=== PATIENT | male | born 1975 | race African-American/Black ===

== ENCOUNTER 2016-09-16 19:35 | Emergency (ER) | payer SELFPAY ==
[~2016-09-16] VITALS: Ht 175.3 cm; Wt 113.4 kg
[~2016-09-16 19:35] MED LIST: ASPI325T70 PO; B12/1TAB3 PO; BENZ200C39 PO; DILT240C PO; EXEN10PE SQ; GLIP10TA13 PO; HYDR-2666 PO; HYDR200T5 PO; LISI1TAB5 PO; LISI40TA PO; MELO-150 PO; METF-620 PO; METH4TAB2 PO; METO5TAB PO; NAPR500T8 PO; NAPR550T PO; NICO1PAT21 TP; RABE20TA5 PO; TEMA30CA PO
[2016-09-16 19:45] VITALS: BP 168/82
[2016-09-16] MEDS ORDERED: HYDROcodone/APAP 5/325MG 1 TAB TABLET PO ONE (20:00)
--- NOTE | 2016-09-16 20:03 | PHYS DOC ---
Past Medical History Past Medical History: Hypertension Additional Past Medical Histor: yolanda right thigh guillain barre syndrome Past Surgical History: Other Additional Past Surgical Histo: yolanda right thig sx Alcohol Use: None Drug Use: None Adult General Chief Complaint Chief Complaint: HAND PROBLEM HPI HPI Patient is a 40 year old male presents emergency department stating that he hit a wall with his right hand. He states that he is having pain in the metacarpal area in the wrist area. Patient states he has not taken anything for the pain and discomfort. Patient states that he is [id number]. Review of Systems Review of Systems Constitutional: Denies fever or chills [] Eyes: Denies change in visual acuity, redness, or eye pain [] HENT: Denies nasal congestion or sore throat [] Respiratory: Denies cough or shortness of breath [] Cardiovascular: No additional information not addressed in HPI [] GI: Denies abdominal pain, nausea, vomiting, bloody stools or diarrhea [] : Denies dysuria or hematuria [] Musculoskeletal: Denies back pain. C/o right hand and wrist pain Integument: Denies rash or skin lesions [] Neurologic: Denies headache, focal weakness or sensory changes [] Endocrine: Denies polyuria or polydipsia [] Current Medications Current Medications Current Medications Medications (Trade) Dose Ordered Sig/Natalie Start Time Stop Time Status Last Admin Dose Admin Acetaminophen/ Hydrocodone Bitart (Lortab 5/325) 1 tab 1X ONCE 09/16/16 20:00 09/16/16 20:01 DC 09/16/16 20:29 1 TAB Allergies Allergies Allergies Coded Allergies Type Severity Reaction Last Updated Verified No Known Drug Allergies 05/01/13 No Physical Exam Physical Exam Constitutional: Well developed, well nourished, no acute distress, non-toxic appearance. [] HENT: Normocephalic, atraumatic, bilateral external ears normal, oropharynx moist, no oral exudates, nose normal. [] Eyes: PERRLA, EOMI, conjunctiva normal, no discharge. [] Neck: Normal range of motion, no tenderness, supple, no stridor. [] Cardiovascular:Heart rate regular rhythm, no murmur [] Lungs & Thorax: Bilateral breath sounds clear to auscultation [] Skin: Warm, dry, no erythema, no rash. [] Back: No tenderness Extremities: Right metacarpal and wrist tenderness, no cyanosis, no clubbing, ROM intact, no edema. Peripheral pulses 2+ cap refill brisk less than 2 seconds. Patient with good incision to the fingers. He is able to move the fingers although discomfort noted. Neurologic: Alert and oriented X 3, normal motor function, normal sensory function, no focal deficits noted. [] Psychologic: Affect normal, judgement normal, mood normal. [] Current Patient Data Vital Signs Vital Signs Date Time Temp Pulse Resp B/P (MAP) Pulse Ox O2 Delivery O2 Flow Rate FiO2 09/16/16 20:29 20 98 09/16/16 19:45 98.1 62 Room Air 98.1 EKG EKG [] Radiology/Procedures Radiology/Procedures [] Course & Med Decision Making Course & Med Decision Making Pertinent Labs and Imaging studies reviewed. (See chart for details) X-rays were positive for fracture along the fifth metacarpal area on the right hand as well as a buckle fracture noted on the right radial. This was also confirmed with Dr. Monge. Patient will be placed in a sugar tong splint with recommendations to follow-up with orthopedic. Patient was instructed to keep the splint in place ice packs on 20 minutes off 20 minutes several times a day. Elevation as much as possible. Patient be placed in a sling he'll be discharged home in stable condition, signs and symptoms to return back to emergency department provided. Patient will be provided with hydrocodone he was instructed that this medication will cause drowsiness do not take any be alert and oriented [] Dragon Disclaimer Dragon Disclaimer This electronic medical record was generated, in whole or in part, using a voice recognition dictation system. Departure Departure Impression: Primary Impression: Hand fracture, right Additional Impression: Wrist fracture, right Disposition: HOME, SELF-CARE Condition: STABLE Referrals: NO PCP (PCP) Patient Instructions: Arm Sling Use-Brief, Hand Fracture, Fifth Metacarpal, Splint Care, [id number], Wrist Fracture Additional Instructions: X-rays positive for a right fifth metacarpal fracture as well as a wrist fracture. Keep the splint in place keep it clean and dry. Wear the sling whenever you're up ambulating to help with elevation. Ice packs on 20 minutes off 20 minutes several times a day. Ibuprofen 800 mg every 8 hours. Take this with food as it may cause an upset stomach. If an upset stomach develops stop taking the medications. Hydrocodone for severe pain and discomfort this medication will cause drowsiness do not take any be alert and oriented. Follow-up with orthopedic in the next 5-7 days. Return back to emergency prior signs symptoms of become worse. Scripts Hydrocodone/Apap 5-325 (NORCO 5-325 TABLET) 1 Each Tablet 1 TAB PO PRN Q6HRS Y for PAIN, #15 TAB 0 Refills Prov: OH TOURE APRN 09/16/16 Splinting Splinting : Location: right arm Splint: sugar-tong Pre-Proc Neuro Vasc Exam: normal Post-Proc Neuro Vasc Exam: normal Problem Qualifiers OH TOURE APRN September 16, 2016 20:03
[2016-09-16] MEDS ORDERED: HYDR-971 PO (20:28)
--- NOTE | 2016-09-17 07:24 | RAD ---
Exam performed: 3 views of the right wrist. Clinical Indication:Injury right hand and wrist with pain Date of Service:09/16/16 Comparison: None available Findings: PA, oblique and lateral radiographs of the wrist reveal the osseous structures to be intact and well aligned. The joint spaces are well-preserved and the articular margins are smooth. Evidence of acute fracture, dislocation or other significant osseous abnormality is not identified. Impression: 1. No acute abnormality seen in the right wrist End impression 3 views right hand findings: Normal alignment is preserved. There is an angulation in the mid diaphysis of the fourth metacarpal, probable nonacute fracture . No acute fracture is identified. There is mild soft tissue swelling overlying the lateral aspect of the hand. No soft tissue foreign body. Impression: 1. Probable nonacute fracture fourth metacarpal. 2. Soft tissue swelling in the lateral aspect of the right hand. 3. If patient's symptoms persist, consider follow-up x-ray of the right hand to evaluate occult fracture.
== END 2016-09-16 20:50 | disposition home or self-care (01) ==
LOC: ER 19:35
DX: S62.304A Unspecified fracture of fourth metacarpal bone, right hand, initial encounter for closed fracture (principal); S62.101A Fracture of unspecified carpal bone, right wrist, initial encounter for closed fracture; I10 Essential (primary) hypertension; W22.8XXA Striking against or struck by other objects, initial encounter; Y93.89 Activity, other specified; Y92.89 Other specified places as the place of occurrence of the external cause; Y99.8 Other external cause status
CPT/HCPCS: 29125; 73110; 73130; 99284-25

== ENCOUNTER 2016-11-08 04:11 | Inpatient (IN) | payer SELFPAY ==
[~2016-11-08] VITALS: Ht 167.6 cm; Wt 112.7 kg
[2016-11-08] VITALS (7 sets, daily range): BP systolic 142–218; BP diastolic 72–119
[~2016-11-08 04:11] MED LIST changes: -BENZ200C39 PO; +BENZ200C47 PO; -EXEN10PE SQ; +EXEN10PE3 SQ; -HYDR-2666 PO; +HYDR-2758 PO; +HYDR-971 PO; -MELO-150 PO; +MELO15TA23 PO; +RABE20TA18 PO; -RABE20TA5 PO
--- NOTE | 2016-11-08 04:14 | PHYS DOC ---
Past Medical History Past Medical History: Hypertension Additional Past Medical Histor: yolanda right thigh guillain barre syndrome Past Surgical History: Other Additional Past Surgical Histo: yolanda right thig sx Alcohol Use: None Drug Use: None Adult General Chief Complaint Chief Complaint: Neck Pain HPI HPI Patient is a 41 year old -[place]i male who presents with right-sided neck pain, shortness of breath and hypertension. He states this morning he started noticing the right side of his neck hurting and he had some intermittent shortness of breath or is a islam. He states tonight his shortness of breath returned. He states his neck pains been constant all day long. He took a hydrocodone at home without any relief. States nothing makes the pain better in his neck. He states turning his neck makes the pain worse. He denies any chest pain abdominal pain nausea or vomiting. States he is to be on the center [facility]. He ran out of a couple weeks ago. He states he stopped smoking marijuana 2 weeks ago and he is down to 2 cigarettes a day. Patient states she's also been filling down and depressed over the last several days. He denies suicidal or homicidal ideations. He is requesting someone talk to regarding his depression. Review of Systems Review of Systems Constitutional: Denies fever or chills [] Eyes: Denies change in visual acuity, redness, or eye pain [] HENT: Denies nasal congestion or sore throat [] Respiratory: Denies cough or shortness of breath [] Cardiovascular: No additional information not addressed in HPI [] GI: Denies abdominal pain, nausea, vomiting, bloody stools or diarrhea [] : Denies dysuria or hematuria [] Musculoskeletal: Denies back pain or joint pain [] Integument: Denies rash or skin lesions [] Neurologic: Denies headache, focal weakness or sensory changes [] Endocrine: Denies polyuria or polydipsia [] Current Medications Current Medications Current Medications Medications (Trade) Dose Ordered Sig/Natalie Start Time Stop Time Status Last Admin Dose Admin Diazepam (Valium) 5 mg 1X ONCE 11/08/16 04:45 11/08/16 04:46 DC 11/08/16 05:14 5 MG Fentanyl Citrate (Fentanyl 2ml Vial) 50 mcg PRN Q15MIN PRN 11/08/16 04:45 11/08/16 08:17 DC 11/08/16 05:14 50 MCG Allergies Allergies Allergies Coded Allergies Type Severity Reaction Last Updated Verified No Known Drug Allergies 05/01/13 No Physical Exam Physical Exam Constitutional: Well developed, well nourished, no acute distress, non-toxic appearance. [] HENT: Normocephalic, atraumatic, bilateral external ears normal, oropharynx moist, no oral exudates, nose normal. [] Eyes: PERRLA, EOMI, conjunctiva normal, no discharge. [] Neck: Normal range of motion, tender to palpation diffusely on the right lateral neck, no midline tenderness or step-offs noted, supple, no stridor. [] Cardiovascular:Heart rate regular rhythm, no murmur [] Lungs & Thorax: Bilateral breath sounds clear to auscultation [] Abdomen: Bowel sounds normal, soft, no tenderness, no masses, no pulsatile masses. [] Skin: Warm, dry, no erythema, no rash. [] Back: No tenderness, no CVA tenderness. [] Extremities: No tenderness, no cyanosis, no clubbing, ROM intact, no edema. [] Neurologic: Alert and oriented X 3, normal motor function, normal sensory function, no focal deficits noted. [] Psychologic: Affect normal, judgement normal, mood normal. [] Current Patient Data Vital Signs Vital Signs Date Time Temp Pulse Resp B/P (MAP) Pulse Ox O2 Delivery O2 Flow Rate FiO2 11/08/16 04:54 20 18 221/110 (147) 96 Room Air 11/08/16 04:34 98.0 98.0 Lab Values Laboratory Tests Test 11/08/16 04:45 White Blood Count 10.4 x10^3/uL (4.0-11.0) Red Blood Count 4.87 x10^6/uL (4.30-5.70) Hemoglobin 15.3 g/dL (13.0-17.5) Hematocrit 44.7 % (39.0-53.0) Mean Corpuscular Volume 92 fL (79-100) Mean Corpuscular Hemoglobin 32 pg (25-35) Mean Corpuscular Hemoglobin Concent 34 g/dL (31-37) Red Cell Distribution Width 13.5 % (11.5-14.5) Platelet Count 176 x10^3/uL (140-400) Neutrophils (%) (Auto) 58 % (31-73) Lymphocytes (%) (Auto) 29 % (24-48) Monocytes (%) (Auto) 10 % (0-9) H Eosinophils (%) (Auto) 3 % (0-3) Basophils (%) (Auto) 1 % (0-3) Neutrophils # (Auto) 6.0 x10^3uL (1.8-7.7) Lymphocytes # (Auto) 3.0 x10^3/uL (1.0-4.8) Monocytes # (Auto) 1.0 x10^3/uL (0.0-1.1) Eosinophils # (Auto) 0.3 x10^3/uL (0.0-0.7) Basophils # (Auto) 0.1 x10^3/uL (0.0-0.2) Prothrombin Time 13.2 SEC (11.7-14.0) Prothrombin Time INR 1.1 (0.8-1.1) Sodium Level 142 mmol/L (136-145) Potassium Level 3.3 mmol/L (3.5-5.1) L Chloride Level 106 mmol/L (98-107) Carbon Dioxide Level 29 mmol/L (21-32) Anion Gap 7 (6-14) Blood Urea Nitrogen 14 mg/dL (8-26) Creatinine 1.4 mg/dL (0.7-1.3) H Estimated GFR (Cockcroft-Gault) 67.6 Glucose Level 138 mg/dL (70-99) H Lactic Acid Level 1.9 mmol/L (0.4-2.0) Calcium Level 8.3 mg/dL (8.5-10.1) L Magnesium Level 1.9 mg/dL (1.8-2.4) Total Bilirubin 0.3 mg/dL (0.2-1.0) Direct Bilirubin 0.1 mg/dL (0.0-0.2) Aspartate Amino Transferase (AST) 23 U/L (15-37) Alanine Aminotransferase (ALT) 37 U/L (16-63) Alkaline Phosphatase 92 U/L (46-116) Creatine Kinase 113 U/L (39-308) Creatine Kinase MB (Mass) 2.8 ng/mL (0.0-3.6) Creatine Kinase MB Relative Index 2.5 % (0-4) Troponin I Quantitative 0.245 ng/mL (0.000-0.055) HJ-[id number]-D-Type Natriuretic Peptide 399 pg/mL (0-124) H Total Protein 6.8 g/dL (6.4-8.2) Albumin 3.6 g/dL (3.4-5.0) Lipase 86 U/L (73-393) Thyroid Stimulating Hormone (TSH) 1.543 uIU/mL (0.358-3.74) Free Thyroxine 0.98 ng/dL (0.76-1.46) Free Triiodothyronine (T3) pg/mL 3.08 pg/mL (2.18-3.98) Laboratory Tests 11/08/16 04:45 Laboratory Tests 11/08/16 04:45 EKG EKG EKG shows sinus rhythm with a rate of [address] elevations, early re -pole noted through V1 through V4, T-wave inversions noted to 3 aVF, normal axis , QTC 4 and 50 ms, as interpreted by me.Similar to on EKG on 03/02/16. Radiology/Procedures Radiology/Procedures Chest x-ray did not show any focal consolidations, bony abnormalities, pneumothorax, as interpreted by me. Impressions: Accelerated hypertension Elevated troponin Right-sided neck pain Depression Course & Med Decision Making Course & Med Decision Making Pertinent Labs and Imaging studies reviewed. (See chart for details) EKG shows likely LVH consistent similar to his previous one. He does not have any chest pain or shortness of breath currently. His troponin is slightly elevated. He's been given labetalol and aspirin is being admitted to the hospitalist with cardiology consultation. He is in stable condition at this time. Interim orders have been written. Dragon Disclaimer Dragon Disclaimer This electronic medical record was generated, in whole or in part, using a voice recognition dictation system. Departure Departure Impression: Primary Impression: Accelerated hypertension Disposition: ADMITTED INPATIENT Admitting Physician: Kala Davis Condition: STABLE Referrals: NO PCP (PCP) ALLIE OLIVERA MD Nov 08, 2016 04:14
[2016-11-08] MEDS ORDERED: fentaNYL PF VIAL 100 MCG/2 ML VIAL IV PRN ×2 (04:45→08:12)
[2016-11-08 04:57] LABS: BASO # 0.1 x10^3/uL (0.0-0.2); BASO % 1 % (0-3); EOS % 3 % (0-3); HEMATOCRIT 44.7 % (39.0-53.0); HEMOGLOBIN 15.3 g/dL (13.0-17.5); LYMPH % 29 % (24-48); MEAN CORPUSCULAR HEMOGLOBIN 32 pg (25-35); MEAN CORPUSCULAR HGB CONC 34 g/dL (31-37); MEAN CORPUSCULAR VOLUME 92 fL (79-100); MONO % 10 % (0-9); NEUT % 58 % (31-73); PLATELET COUNT 176 x10^3/uL (140-400); RED BLOOD COUNT 4.87 x10^6/uL (4.30-5.70); RED CELL DISTRIBUTION WIDTH 13.5 % (11.5-14.5); WHITE BLOOD COUNT 10.4 x10^3/uL (4.0-11.0)
[2016-11-08 05:08] LABS: INR 1.1 (0.8-1.1); PROTHROMBIN TIME PATIENT 13.2 SEC (11.7-14.0)
[2016-11-08 05:18] LABS: CALCIUM 8.3 mg/dL (8.5-10.1); CREATININE 1.4 mg/dL (0.7-1.3); GFR 67.6; POTASSIUM 3.3 mmol/L (3.5-5.1)
[2016-11-08 05:32] LABS: ALBUMIN 3.6 g/dL (3.4-5.0); DIRECT BILIRUBIN 0.1 mg/dL (0.0-0.2); MAGNESIUM 1.9 mg/dL (1.8-2.4); TOTAL BILIRUBIN 0.3 mg/dL (0.2-1.0); TOTAL PROTEIN 6.8 g/dL (6.4-8.2)
[2016-11-08 05:33] LABS: CKMB MASS 2.8 ng/mL (0.0-3.6)
[2016-11-08] MEDS ORDERED: LABETALOL 20 MG/4 ML DISP.SYRIN. IVP PRN ×2 (05:45→08:15)
[2016-11-08] MEDS ORDERED: ASPIRIN 325 MG TABLET PO ONE (05:45)
[2016-11-08] MEDS ORDERED: LABETALOL 20 MG/4 ML DISP.SYRIN. IVP ONE (05:45)
[2016-11-08] MEDS ORDERED: MORPHINE SULFATE 2 MG/ML DISP.SYRIN. IV PRN (05:45)
[2016-11-08] MEDS ORDERED: ONDANSETRON PF 4 MG/2 ML VIAL. IV PRN ×2 (05:45→08:12)
--- NOTE | 2016-11-08 07:12 | EKG ---
[facility] [address] [place] [address] Test Date: 2016-11-08 Test Time: 04:31:48 Pat Name: REDDY RAYMUDNO Department: Room: Gender: M Loan Coordinator: : 1975 Requested By: ALLIE OLIVERA Order Number: [id number] Reading MD: Measurements Intervals [place] Rate: 87 P: 34 ID: [id number] QRS: 56 QRSD: 86 T: -62 QT: 380 QTc: 458 Interpretive Statements SINUS RHYTHM LEFT ATRIAL ABNORMALITY LVH WITH REPOLARIZATION ABNORMALITY QRS(T) CONTOUR ABNORMALITY CONSIDER ANTEROLATERAL MYOCARDIAL DAMAGE ABNORMAL ECG RI6.01 No previous ECG available for comparison
--- NOTE | 2016-11-08 07:33 | RAD ---
Indication chest pain. A single view of the chest was obtained. Note is made of a previous examination 03/02/2016. Mild cardiomegaly is noted, similar. There is no congestive heart failure. No focal infiltrate is seen. There is no pleural fluid or pneumothorax. Overall there has not been a significant change compared to the previous exam. IMPRESSION: Unchanged mild cardiomegaly. No acute or focal process seen
[2016-11-08] MEDS ORDERED: HYDROcodone/APAP 5/325MG 1 TAB TABLET PO PRN ×2 (08:15)
[2016-11-08] MEDS ORDERED: EXENATIDE 10 MCG/0.04 ML 2.4ML PEN.INJCTR. SQ SCH (09:00)
[2016-11-08] MEDS ORDERED: BENZONATATE 100 MG CAPSULE. PO SCH (09:00)
[2016-11-08] MEDS ORDERED: glipiZIDE ER 2.5 MG TAB.ER.24 PO SCH (09:00)
--- NOTE | 2016-11-08 09:55 | PDOC1 ---
History and Physical Date of Admission Date of Admission DATE: 11/08/16 TIME: 09:47 Identification/Chief Complaint Chief Complaint neck pains Problems: Source Source: Caregiver, Chart review, Patient History of Present Illness History of Present Illness 41 y.o AA male, heavy set,. follows with a clinic where his co pay is $25 to see him, known hypertensive, supposed to be on lisinopril but not taking ( takes his mom's lisinopril), came in last night bec of severe neck pains and headaches, SBP was > 200 at ER. No BOV, no cp, soa,. Feels better, SBO now 170/110, HR 80s, seen on CVC with cards on board, NO FNDs, neuro exam WNL. Looking at MAR , i see lisinopril HCTZ, cardizem etc' I did discuss with him about these pills being on $4 [facility] list for 90 pills and he was unaware of this, Used to smoke 2 cigs a day and 2 drinks etoh in a yr only Hx R yolanda leg placement and GBS at age 19, not affecting breathing but did affect eating - point his deficit was from the nipples down. NO recurrence since. CLaims Still feet pain, intermittent, Past Medical History Cardiovascular: HTN Pulmonary: Bronchitis GI: Other (tick bite) Musculoskeletal: Other (GBS) Past Surgical History Past Surgical History: Other (yolanda ortho sx R leg) Family History Family History: Heart Disease, High Cholestrol, Hypertension Social History Smoke: <1 pack per day ALCOHOL: occassional Drugs: None Current Problem List Problem List Problems Medical Problems: (1) Accelerated hypertension Status: Acute Problems: Current Medications Current Medications Current Medications Fentanyl Citrate (Fentanyl 2ml Vial) 50 mcg PRN Q15MIN PRN IV PAIN GREATER THAN 3/10 Last administered on 11/08/16 05:14; Start 11/08/16 at 04:45; Stop 11/08 at 08:17; Status DC Diazepam (Valium) 5 mg 1X ONCE IV Last administered on 11/08/16 05:14; Start 11/08/16 at 04:45; Stop 11/08/16 at 04:46; Status DC Labetalol HCl (Normodyne) 20 mg 1X ONCE IVP Last administered on 11/08/16 05: 40; Start 11/08/16 at 05:45; Stop 11/08/16 at 05:46; Status DC Aspirin (Lindsey Aspirin) 325 mg 1X ONCE PO Last administered on 11/08/16 05:39 ; Start 11/08/16 at 05:45; Stop 11/08/16 at 05:46; Status DC Ondansetron HCl (Zofran) 4 mg PRN Q8HRS PRN IV NAUSEA/VOMITING; Start 11/08/16 at 05:45; Stop 11/08/16 at 08:17; Status DC Morphine Sulfate 2 mg PRN Q2HR PRN IV PAIN Last administered on 11/08/16 08:14 ; Start 11/08/16 at 05:45; Stop 11/09/16 at 05:44 Labetalol HCl (Normodyne) 20 mg PRN 1X PRN IVP systolic greater than 180 Last administered on 11/08/16 07:16; Start 11/08/16 at 05:45 Fentanyl Citrate (Fentanyl 2ml Vial) 50 mcg PRN Q2HR PRN IV PAIN GREATER THAN 3 /10; Start 11/08/16 at 08:12; Stop 11/09/16 at 08:11 Ondansetron HCl (Zofran) 4 mg PRN Q6HRS PRN IV NAUSEA/VOMITING; Start 11/08/16 at 08:12; Stop 11/09/16 at 08:11 Labetalol HCl (Normodyne) 10 mg PRN Q2HR PRN IVP HYPERTENSION, SEE COMMENTS; Start 11/08/16 at 08:15 Acetaminophen/ Hydrocodone Bitart (Lortab 5/325) 1 tab PRN Q4HRS PRN PO PAIN; Start 11/08/16 at 08:15 Diltiazem HCl (Cardizem 24hr Cd) 240 mg DAILY PO ; Start 11/08/16 at 09:00 Exenatide (Byetta) 10 mcg DAILY SQ ; Start 11/08/16 at 09:00 Acetaminophen/ Hydrocodone Bitart (Lortab 5/325) 1 tab QID PRN PO pain; Start 11/08/16 at 08:15; Status UNV Acetaminophen/ Hydrocodone Bitart (Lortab 5/325) 1 tab PRN Q6HRS PRN PO PAIN; Start 11/08/16 at 08:15; Status UNV Lisinopril (Prinivil) 40 mg DAILY PO ; Start 11/08/16 at 09:00 Metoclopramide HCl (Reglan) 5 mg TIDAC PO ; Start 11/08/16 at 11:30 Nicotine (Nicoderm Cq 21mg) 1 patch DAILY TD ; Start 11/08/16 at 09:00 Temazepam (Restoril) 15 mg QHS PO ; Start 11/08/16 at 21:00 Benzonatate (Tessalon Perle) 100 mg [id number] PO ; Start 11/08/16 at 09:00 Glipizide (Glucotrol Er) 10 mg DAILY08 PO ; Start 11/09/16 at 08:00; Stop at 08:00; Status DC Glipizide (Glucotrol Er) 10 mg DAILY08 PO ; Start 11/08/16 at 09:00 Active Scripts Active [place] 5-325 Tablet (Acetaminophen/Hydrocodone Bitart) 1 Each Tablet 1 Tab PO PRN Q6HRS PRN Anaprox Ds (Naproxen Sodium) 550 Mg Tablet 1 Tab PO PRN Q12HRS Benzonatate 200 Mg Capsule 1 Cap PO TID Lisinopril 40 Mg Tablet 1 Tab PO DAILY Naproxen 500 Mg Tablet.dr 1 Tab PO BID Medrol (Methylprednisolone) 4 Mg Tab.ds.pk 1 Pkg PO UD NICODERM CQ 21mg (Nicotine) 1 Each Patch.td24 1 Patch TP DAILY Reported Byetta (Exenatide) 10 Mcg/0.04 Ml Pen.injctr 10 Mcg SQ Metformin Hcl 1,000 Mg Tablet 1,000 Mg PO Glipizide 10 Mg Tablet 10 Mg PO Hydroxychloroquine Sulfate 200 Mg Tablet 200 Mg PO Lisinopril-Hctz 20-12.5 Mg Tab (Lisinopril/Hydrochlorothiazide) 1 Each Tablet 1 Each PO Metoclopramide Hcl 5 Mg Tablet 5 Mg PO Diltiazem 24HR Er (Diltiazem Hcl) 240 Mg Cap.er.24h 240 Mg PO Aciphex (Rabeprazole Sodium) 20 Mg Tablet.dr 20 Mg PO Hydrocodone-Apap 5-325 (Hydrocodone Bit/Acetaminophen) 1 Each Tablet 1 Each PO Meloxicam 15 Mg Tablet 15 Mg PO Temazepam 30 Mg Capsule 30 Mg PO Folbic Rf Tablet (B12/Levomefolate Calcium/B-6) 1 Each Tablet 1 Each PO Aspirin Buffered 325 Mg Tab (Aspirin/Calcium Carbonate/Mag) 325 Mg Tablet 325 Mg PO Allergies Allergies: Coded Allergies: No Known Drug Allergies (Unverified , 05/01/13) ROS General: No: Chills, Night Sweats, Fatigue, Malaise, Appetite, Other PSYCHOLOGICAL ROS: No: Anxiety, Behavioral Disorder, Concentration difficultie , Decreased libido, Depression, Disorientation, Hallucinations, Hostility, Irritablity, Memory difficulties, Mood Swings, Obsessive thoughts, Physical abuse, Sexual abuse, Sleep disturbances, Suicidal ideation, Other Eyes: No Blurry vision, No Decreased vision, No Double vision, No Dry eyes, No Excessive tearing, No Eye Pain, No Itchy Eyes, No Loss of vision, No Photophobia , No Scotomata, No Uses contacts, No Uses glasses, No Other Hematological and Lymphatic: No: Bleeding Problems, Blood Clots, Blood Transfusions, Brusing, Night Sweats, Pallor, Swollen Lymph Nodes, Other Breast: No New/Changing Breast Lumps, No Nipple changes, No Nipple discharge, No Other Respiratory: No: Cough, Hemoptysis, Orthopnea, Pleuritic Pain, Shortness of breath, SOB with excertion, Sputum Changes, Stridor, Tachypnea, Wheezing, Other Cardiovascular: No Chest Pain, No Palpitations, No Orthopnea, No Paroxysmal Noc. Dyspnea, No Edema, No Lt Headedness, No Other Gastrointestinal: No Nausea, No Vomiting, No Abdominal Pain, No Diarrhea, No Constipation, No Melena, No Hematochezia, No Other Musculoskeletal: No Gait Disturbance, No Joint Pain, No Joint Stiffness, No Joint Swelling, No Muscle Pain, No Muscular Weakness, No Pain In:, No Swelling In:, No Other Neurological: Yes Headaches, Yes Other (neck pain) Physical Exam General: Alert, Oriented X3, Cooperative, No acute distress HEENT: Atraumatic, PERRLA, EOMI Lungs: Clear to auscultation, Normal air movement Heart: S1S2, RRR, no thrills, no rubs Cardiovascular: S1, S2 Breasts: Normal, Rt breast nml w/o mass, Lt breast nml w/o mass, Nipples normal Abdomen: Normal bowel sounds, Soft, No tenderness, No hepatosplenomegaly, No masses Male Genitals Exam: normal genitalia, normal prostate Rectal Exam: not examined PELVIC: Nml ext genitalia Extremities: No clubbing, No cyanosis, No edema, Normal pulses, No tenderness/ swelling Skin: No rashes, No breakdown, No significant lesion Neuro: Normal gait, Normal speech, Strength at 5/5 X4 ext, Normal tone, Sensation intact, Cranial nerves 3-12 NL, Reflexes 2+ Psych/Mental Status: Mental status NL, Mood NL Vitals Vitals Vital Signs Date Time Temp Pulse Resp B/P (MAP) Pulse Ox O2 Delivery O2 Flow Rate FiO2 11/08/16 08:14 20 Room Air 11/08/16 07:16 92 182/104 11/08/16 07:00 98.0 95 98.0 Labs Labs Laboratory Tests Test 11/08/16 04:45 White Blood Count 10.4 x10^3/uL (4.0-11.0) Red Blood Count 4.87 x10^6/uL (4.30-5.70) Hemoglobin 15.3 g/dL (13.0-17.5) Hematocrit 44.7 % (39.0-53.0) Mean Corpuscular Volume 92 fL (79-100) Mean Corpuscular Hemoglobin 32 pg (25-35) Mean Corpuscular Hemoglobin Concent 34 g/dL (31-37) Red Cell Distribution Width 13.5 % (11.5-14.5) Platelet Count 176 x10^3/uL (140-400) Neutrophils (%) (Auto) 58 % (31-73) Lymphocytes (%) (Auto) 29 % (24-48) Monocytes (%) (Auto) 10 % (0-9) Eosinophils (%) (Auto) 3 % (0-3) Basophils (%) (Auto) 1 % (0-3) Neutrophils # (Auto) 6.0 x10^3uL (1.8-7.7) Lymphocytes # (Auto) 3.0 x10^3/uL (1.0-4.8) Monocytes # (Auto) 1.0 x10^3/uL (0.0-1.1) Eosinophils # (Auto) 0.3 x10^3/uL (0.0-0.7) Basophils # (Auto) 0.1 x10^3/uL (0.0-0.2) Prothrombin Time 13.2 SEC (11.7-14.0) Prothromb Time International Ratio 1.1 (0.8-1.1) Sodium Level 142 mmol/L (136-145) Potassium Level 3.3 mmol/L (3.5-5.1) Chloride Level 106 mmol/L (98-107) Carbon Dioxide Level 29 mmol/L (21-32) Anion Gap 7 (6-14) Blood Urea Nitrogen 14 mg/dL (8-26) Creatinine 1.4 mg/dL (0.7-1.3) Estimated GFR (Cockcroft-Gault) 67.6 Glucose Level 138 mg/dL (70-99) Lactic Acid Level 1.9 mmol/L (0.4-2.0) Calcium Level 8.3 mg/dL (8.5-10.1) Magnesium Level 1.9 mg/dL (1.8-2.4) Total Bilirubin 0.3 mg/dL (0.2-1.0) Direct Bilirubin 0.1 mg/dL (0.0-0.2) Aspartate Amino Transf (AST/SGOT) 23 U/L (15-37) Alanine Aminotransferase (ALT/SGPT) 37 U/L (16-63) Alkaline Phosphatase 92 U/L (46-116) Creatine Kinase 113 U/L (39-308) Creatine Kinase MB (Mass) 2.8 ng/mL (0.0-3.6) Creatine Kinase MB Relative Index 2.5 % (0-4) Troponin I Quantitative 0.245 ng/mL (0.000-0.055) NA-Yei-G-Type Natriuretic Peptide 399 pg/mL (0-124) Total Protein 6.8 g/dL (6.4-8.2) Albumin 3.6 g/dL (3.4-5.0) Lipase 86 U/L (73-393) Thyroid Stimulating Hormone (TSH) 1.543 uIU/mL (0.358-3.74) Laboratory Tests Test 11/08/16 04:45 White Blood Count 10.4 x10^3/uL (4.0-11.0) Red Blood Count 4.87 x10^6/uL (4.30-5.70) Hemoglobin 15.3 g/dL (13.0-17.5) Hematocrit 44.7 % (39.0-53.0) Mean Corpuscular Volume 92 fL (79-100) Mean Corpuscular Hemoglobin 32 pg (25-35) Mean Corpuscular Hemoglobin Concent 34 g/dL (31-37) Red Cell Distribution Width 13.5 % (11.5-14.5) Platelet Count 176 x10^3/uL (140-400) Neutrophils (%) (Auto) 58 % (31-73) Lymphocytes (%) (Auto) 29 % (24-48) Monocytes (%) (Auto) 10 % (0-9) Eosinophils (%) (Auto) 3 % (0-3) Basophils (%) (Auto) 1 % (0-3) Neutrophils # (Auto) 6.0 x10^3uL (1.8-7.7) Lymphocytes # (Auto) 3.0 x10^3/uL (1.0-4.8) Monocytes # (Auto) 1.0 x10^3/uL (0.0-1.1) Eosinophils # (Auto) 0.3 x10^3/uL (0.0-0.7) Basophils # (Auto) 0.1 x10^3/uL (0.0-0.2) Prothrombin Time 13.2 SEC (11.7-14.0) Prothromb Time International Ratio 1.1 (0.8-1.1) Sodium Level 142 mmol/L (136-145) Potassium Level 3.3 mmol/L (3.5-5.1) Chloride Level 106 mmol/L (98-107) Carbon Dioxide Level 29 mmol/L (21-32) Anion Gap 7 (6-14) Blood Urea Nitrogen 14 mg/dL (8-26) Creatinine 1.4 mg/dL (0.7-1.3) Estimated GFR (Cockcroft-Gault) 67.6 Glucose Level 138 mg/dL (70-99) Lactic Acid Level 1.9 mmol/L (0.4-2.0) Calcium Level 8.3 mg/dL (8.5-10.1) Magnesium Level 1.9 mg/dL (1.8-2.4) Total Bilirubin 0.3 mg/dL (0.2-1.0) Direct Bilirubin 0.1 mg/dL (0.0-0.2) Aspartate Amino Transf (AST/SGOT) 23 U/L (15-37) Alanine Aminotransferase (ALT/SGPT) 37 U/L (16-63) Alkaline Phosphatase 92 U/L (46-116) Creatine Kinase 113 U/L (39-308) Creatine Kinase MB (Mass) 2.8 ng/mL (0.0-3.6) Creatine Kinase MB Relative Index 2.5 % (0-4) Troponin I Quantitative 0.245 ng/mL (0.000-0.055) XQ-Mey-S-Type Natriuretic Peptide 399 pg/mL (0-124) Total Protein 6.8 g/dL (6.4-8.2) Albumin 3.6 g/dL (3.4-5.0) Lipase 86 U/L (73-393) Thyroid Stimulating Hormone (TSH) 1.543 uIU/mL (0.358-3.74) VTE Prophylaxis Ordered VTE Prophylaxis Devices: Yes VTE Pharmacological Prophylaxi: Yes Assessment/Plan Assessment/Plan 1. Hypertensive emergency POA 2. Obesity BMI 40.4 3. DM type 2? on glipizide on records (BS not bad 130s) 4. HX GBS 5. Social smoker and drinker pLAN: Add labetolol prn Admit CVC Cards consulted REsumed home meds (lisinopril, HCTZ combo pill, cardizem as home med) SSI MAy check [id number] Needs to ff up OP with clinic for better BP control; COunseled on tHe $4 pharmacy list Blayne RN and pt KENDY FLOYD MD Nov 08, 2016 09:55
[2016-11-08] MEDS: HYDROcodone/APAP 5/325MG 1 TAB TABLET PO PRN ×3 (10:00→20:45)
--- NOTE | 2016-11-08 10:37 | PDOC2 ---
CARDIAC CONSULT DATE OF CONSULT Date of Consult DATE: 11/08/16 TIME: 10:31 REASON FOR CONSULT Reason for Consult: Accelerated HTN REFERRING PHYSICIAN Referring Physician: Dr. Gupta SOURCE Source: Chart review, Patient HISTORY OF PRESENT ILLNESS HISTORY OF PRESENT ILLNESS This is a 41 yo male, with a h/o HTN, who presented with complaints of MATHEW and neck pain. SBP> 200 upon arrival. Labetalol IVP administered with mild improvement. Patient reports neck pain began yesterday morning while at [employer]. Describes pain as a constant and throbbing/aching. Pain improved by rubbing his neck. Took hydrocodone, which did not significantly improved pain. Also noticed slight MATHEW a that time. Symptoms persisted through the day, evening, and night. Unable to sleep due to the pain so he came into the ED for further evaluation and treatment. Patient denies any chest pain, dizziness, diaphoresis , or n/v. Has had some mild SOA. No orthopnea or LE edema Does have a history of hypertension. Was previously on Cardizem and lisinopril, but quit taking as the "raised the beckett and were too expensive." PAST MEDICAL HISTORY Cardiovascular: HTN Pulmonary: No pertinent hx CENTRAL NERVOUS SYSTEM: Other (no pertinent hx ) GI: No pertinent hx Heme/Onc: No pertinent hx Hepatobiliary: No pertinent hx Psych: Depression Musculoskeletal: Osteoarthritis, Other (GBS) Rheumatologic: No pertinent hx Infectious disease: No pertinent hx ENT: No pertinent hx Renal/: No pertinent hx Endocrine: No pertinent hx Dermatology: No pertinent hx PAST SURGICAL HISTORY Past Surgical History: Other (yolanda left femur following fx) FAMILY HISTORY Family History: Hypertension SOCIAL HISTORY Smoke: <1 pack per day ALCOHOL: rare Drugs: None Lives: with Family CURRENT MEDICATIONS CURRENT MEDICATIONS Current Medications Medications (Trade) Dose Ordered Sig/Natalie Route PRN Reason Start Time Stop Time Status Last Admin Dose Admin Fentanyl Citrate (Fentanyl 2ml Vial) 50 mcg PRN Q15MIN PRN IV PAIN GREATER THAN 3/10 11/08/16 04:45 11/08/16 08:17 DC 11/08/16 05:14 Diazepam (Valium) 5 mg 1X ONCE IV 11/08/16 04:45 11/08/16 04:46 DC 11/08/16 05:14 Labetalol HCl (Normodyne) 20 mg 1X ONCE IVP 11/08/16 05:45 11/08/16 05:46 DC 11/08/16 05:40 Aspirin (Lindsey Aspirin) 325 mg 1X ONCE PO 11/08/16 05:45 11/08/16 05:46 DC 11/08/16 05:39 Morphine Sulfate 2 mg PRN Q2HR PRN IV PAIN 11/08/16 05:45 11/09/16 05:44 11/08/16 08:14 Labetalol HCl (Normodyne) 20 mg PRN 1X PRN IVP systolic greater than 180 11/08/16 05:45 11/08/16 07:16 ALLERGIES ALLERGIES: Coded Allergies: No Known Drug Allergies (Unverified , 05/01/13) ROS Review of System 14 point ROS conducted with pertinent positives noted above in HPI. PHYSICAL EXAM General: Alert, Oriented X3, Cooperative, No acute distress HEENT: Atraumatic, Mucous membr. moist/pink, Other (neck pain) Lungs: Clear to auscultation, Normal air movement Heart: Regular rate, Normal S1, Normal S2, No murmurs Abdomen: Soft, No tenderness Extremities: No edema, Normal pulses Skin: No breakdown, No significant lesion Neuro: Normal speech, Sensation intact Psych/Mental Status: Mental status NL, Mood NL MUSCULOSKELETAL: No joint tenderness VITALS VITALS Vital Signs Date Time Temp Pulse Resp B/P (MAP) Pulse Ox O2 Delivery O2 Flow Rate FiO2 11/08/16 08:14 20 Room Air 11/08/16 07:16 92 182/104 11/08/16 07:00 98.0 95 98.0 LABS Lab: Laboratory Tests Test 11/08/16 04:45 White Blood Count 10.4 x10^3/uL (4.0-11.0) Red Blood Count 4.87 x10^6/uL (4.30-5.70) Hemoglobin 15.3 g/dL (13.0-17.5) Hematocrit 44.7 % (39.0-53.0) Mean Corpuscular Volume 92 fL (79-100) Mean Corpuscular Hemoglobin 32 pg (25-35) Mean Corpuscular Hemoglobin Concent 34 g/dL (31-37) Red Cell Distribution Width 13.5 % (11.5-14.5) Platelet Count 176 x10^3/uL (140-400) Neutrophils (%) (Auto) 58 % (31-73) Lymphocytes (%) (Auto) 29 % (24-48) Monocytes (%) (Auto) 10 % (0-9) Eosinophils (%) (Auto) 3 % (0-3) Basophils (%) (Auto) 1 % (0-3) Neutrophils # (Auto) 6.0 x10^3uL (1.8-7.7) Lymphocytes # (Auto) 3.0 x10^3/uL (1.0-4.8) Monocytes # (Auto) 1.0 x10^3/uL (0.0-1.1) Eosinophils # (Auto) 0.3 x10^3/uL (0.0-0.7) Basophils # (Auto) 0.1 x10^3/uL (0.0-0.2) Prothrombin Time 13.2 SEC (11.7-14.0) Prothromb Time International Ratio 1.1 (0.8-1.1) Sodium Level 142 mmol/L (136-145) Potassium Level 3.3 mmol/L (3.5-5.1) Chloride Level 106 mmol/L (98-107) Carbon Dioxide Level 29 mmol/L (21-32) Anion Gap 7 (6-14) Blood Urea Nitrogen 14 mg/dL (8-26) Creatinine 1.4 mg/dL (0.7-1.3) Estimated GFR (Cockcroft-Gault) 67.6 Glucose Level 138 mg/dL (70-99) Lactic Acid Level 1.9 mmol/L (0.4-2.0) Calcium Level 8.3 mg/dL (8.5-10.1) Magnesium Level 1.9 mg/dL (1.8-2.4) Total Bilirubin 0.3 mg/dL (0.2-1.0) Direct Bilirubin 0.1 mg/dL (0.0-0.2) Aspartate Amino Transf (AST/SGOT) 23 U/L (15-37) Alanine Aminotransferase (ALT/SGPT) 37 U/L (16-63) Alkaline Phosphatase 92 U/L (46-116) Creatine Kinase 113 U/L (39-308) Creatine Kinase MB (Mass) 2.8 ng/mL (0.0-3.6) Creatine Kinase MB Relative Index 2.5 % (0-4) Troponin I Quantitative 0.245 ng/mL (0.000-0.055) NL-Sks-E-Type Natriuretic Peptide 399 pg/mL (0-124) Total Protein 6.8 g/dL (6.4-8.2) Albumin 3.6 g/dL (3.4-5.0) Lipase 86 U/L (73-393) Thyroid Stimulating Hormone (TSH) 1.543 uIU/mL (0.358-3.74) ASSESSMENT/PLAN ASSESSMENT/PLAN 1. Hypertensive emergency; now improved 2. Mildly elevated troponin; peak 0.245. Likely type II, demand ischemia in the setting of #1. 3. ? CKD 4. Hypokalemia; K 3.3 Recommendations Trend troponin. AntiHTN therapy resumed. Tailor to $4 list to make affordable; will stop cardizem (as it is not on $4 list) and add Coreg. Monitor to assess need for further titration. Hydralazine PRN Discussed importance of medication adherence Outpatient followup Problems: DONALD THOMAS APRN Nov 08, 2016 10:37
[2016-11-08 10:52] LABS: FREE T4 0.98 ng/dL (0.76-1.46)
[2016-11-08] MEDS: LISINOPRIL 40 MG TABLET. PO SCH (11:19)
[2016-11-08] MEDS: METOCLOPRAMIDE 5 MG TABLET. PO SCH ×2 (11:19→16:30)
[2016-11-08] MEDS: NICOTINE 21MG PATCH. TD SCH (11:22)
--- NOTE | 2016-11-08 12:16 | ACF ---
Admission Forms Criteria HYPERTENSION Clinical Indications for Admission to Inpatient Care ( Place "X" for any and all applicable criteria): Admission is indicated for 1 or more of the following(1)(2)(3)(4)(5)(6)(7)(8)(9) (10): [ ]I. Hypertensive emergency, with evidence of acute and progressing target organ disease as indicated by 1 or more of the following: [ ]a) Hypertensive encephalopathy (eg, confusion, altered mental status) [ ]b) Cerebral infarction [ ]c) Intracranial hemorrhage [ ]d) Myocardial ischemia or infarction [ ]e) Heart failure (eg. Pulmonary edema) [ ]f) Aortic dissection [ ]g) Increased creatinine (new) with reduction of more than 50% in estimated glomerular filtration rate from baseline [ ]h) Seizure [ ]i) Papilledema [ ]j) Retinal hemorrhage [ ]k) Microangiopathic hemolytic anemia [ ]l) Other significant finding secondary to hypertension [ ]II. Adrenergic or sympathomimetic crisis (eg, severe hypertension due to pheochromocytoma crisis, cocaine or amphetamine intoxication, or clonidine withdrawal) [X]III. Severe hypertension (SBP greater than 180 mmHg or DBP greater than 110 mmHg or greater than the 95th percentile for age, gender, and height in pediatric patients) that cannot be controlled (eg, to SBP less than 160 mmHg and DBP less than 100 mmHg in adults) by treatment with oral medication in emergency department or observation care Extended stay beyond goal length of stay may be needed for(11)(12)(13): [ ]a) Persistent hypertensive encephalopathy [ ]b) Continuation of pulmonary edema [ ]c) Recurring or persistent severe hypertension [ ]d) Target organ damage (eg, angina, stroke, aortic dissection) The original [employer] content created by [employer] has been revised. The portions of the content which have been revised are identified through the use of italic text, and [employer] has neither reviewed nor approved the modified material. All other unmodified content is copyright [employer]. Please see references footnoted in the original [employer] edition 2014 Admission Criteria Met?: Yes KEANU RAYMUNDO Nov 08, 2016 12:16
[2016-11-08] MEDS ORDERED: hydrALAZINE 20 MG/ML VIAL. IVP PRN (13:15)
[2016-11-08] MEDS ORDERED: POTASSIUM CHLORIDE 20 MEQ TABLET.ER. PO ONE (13:15)
[2016-11-08] MEDS: CARVEDILOL 12.5 MG TABLET. PO SCH ×2 (14:09→17:27)
[2016-11-08] MEDS ORDERED: TEMAZEPAM 15 MG CAPSULE PO SCH (21:00)
[2016-11-09] MEDS: HYDROcodone/APAP 5/325MG 1 TAB TABLET PO PRN ×2 (02:13→06:14)
[2016-11-09 03:00] VITALS: BP 150/90
[2016-11-09 03:28] LABS: BASO # 0.1 x10^3/uL (0.0-0.2); BASO % 1 % (0-3); EOS % 4 % (0-3); HEMATOCRIT 47.1 % (39.0-53.0); HEMOGLOBIN 16.1 g/dL (13.0-17.5); LYMPH # 2.6 x10^3/uL (1.0-4.8); LYMPH % 26 % (24-48); MEAN CORPUSCULAR HEMOGLOBIN 32 pg (25-35); MEAN CORPUSCULAR HGB CONC 34 g/dL (31-37); MEAN CORPUSCULAR VOLUME 92 fL (79-100); MONO % 9 % (0-9); NEUT % 59 % (31-73); PLATELET COUNT 187 x10^3/uL (140-400); RED BLOOD COUNT 5.11 x10^6/uL (4.30-5.70); RED CELL DISTRIBUTION WIDTH 13.8 % (11.5-14.5); WHITE BLOOD COUNT 9.9 x10^3/uL (4.0-11.0)
[2016-11-09 03:45] LABS: CALCIUM 8.9 mg/dL (8.5-10.1); CREATININE 1.1 mg/dL (0.7-1.3); GFR 89.3; POTASSIUM 3.4 mmol/L (3.5-5.1)
[2016-11-09 07:00] VITALS: BP 152/92
[2016-11-09] MEDS ORDERED: GLIPIZIDE ER 5 MG TAB.ER.24 PO SCH (08:00)
[2016-11-09] MEDS: CARVEDILOL 12.5 MG TABLET. PO SCH (08:24)
[2016-11-09] MEDS: LISINOPRIL 40 MG TABLET. PO SCH (08:25)
[2016-11-09] MEDS: METOCLOPRAMIDE 5 MG TABLET. PO SCH ×2 (08:25→11:30)
[2016-11-09] MEDS: NICOTINE 21MG PATCH. TD SCH (08:25)
--- NOTE | 2016-11-09 08:31 | PDOC ---
CARDIOLOGY PROGRESS NOTE SUBJECTIVE: No acute events overnight. BP better controlled. OBJECTIVE: Vital SIgns: Vital Signs Date Time Temp Pulse Resp B/P (MAP) Pulse Ox O2 Delivery O2 Flow Rate FiO2 11/09/16 08:25 75 152/92 11/09/16 08:23 Room Air 11/09/16 07:00 97.5 22 94 97.5 I & O Intake and Output 11/09/16 07:00 Intake Total 1280 ml Output Total 1700 ml Balance -420 ml Intake Oral 1280 ml Output Urine Total 1700 ml # Voids 2 Objective: Gen: A/O x 3. NAd CVS: RRR, no m/r/g PULM: CTAB ABd: Soft, NT/ND +BS EXT: No edema. CURRENT MEDICATIONS: Current Medications Medications (Trade) Dose Ordered Sig/Natalie Start Time Stop Time Status Last Admin Dose Admin Acetaminophen/ Hydrocodone Bitart (Lortab 5/325) 1 tab PRN Q6HRS PRN 11/08/16 08:15 UNV Aspirin (Lindsey Aspirin) 325 mg 1X ONCE 11/08/16 05:45 11/08/16 05:46 DC 11/08/16 05:39 325 MG Benzonatate (Tessalon Perle) 100 mg [id number] 11/08/16 09:00 11/08/16 11:36 DC 11/08/16 11:18 100 MG Carvedilol (Coreg) 12.5 mg BIDWMEALS 11/08/16 13:30 11/09/16 08:24 12.5 MG Diazepam (Valium) 5 mg 1X ONCE 11/08/16 04:45 11/08/16 04:46 DC 11/08/16 05:14 5 MG Diltiazem HCl (Cardizem 24hr Cd) 240 mg DAILY 11/08/16 09:00 11/08/16 13:11 DC 11/08/16 11:19 240 MG Exenatide (Byetta) 10 mcg DAILY 11/08/16 09:00 11/08/16 11:36 DC Fentanyl Citrate (Fentanyl 2ml Vial) 50 mcg PRN Q2HR PRN 11/08/16 08:12 11/09/16 08:11 DC Glipizide (Glucotrol Er) 10 mg DAILY08 11/08/16 09:00 11/08/16 11:36 DC Hydralazine HCl (Apresoline) 10 mg PRN Q4HRS PRN 11/08/16 13:15 Labetalol HCl (Normodyne) 10 mg PRN Q2HR PRN 11/08/16 08:15 Lisinopril (Prinivil) 40 mg DAILY 11/08/16 09:00 11/09/16 08:25 40 MG Metoclopramide HCl (Reglan) 5 mg TIDAC 11/08/16 11:30 11/09/16 08:25 5 MG Morphine Sulfate 2 mg PRN Q2HR PRN 11/08/16 05:45 11/09/16 05:44 DC 11/08/16 08:14 2 MG Nicotine (Nicoderm Cq 21mg) 1 patch DAILY 11/08/16 09:00 11/09/16 08:25 1 PATCH Ondansetron HCl (Zofran) 4 mg PRN Q6HRS PRN 11/08/16 08:12 11/09/16 08:11 DC Potassium Chloride (Klor-Con) 40 meq 1X ONCE 11/08/16 13:15 11/08/16 13:16 DC 11/08/16 14:08 40 MEQ Temazepam (Restoril) 15 mg QHS 11/08/16 21:00 11/08/16 20:45 15 MG DIAGNOSTIC TESTING: No new testing ASSESSMENT: 1. Malignant HTN - Improved. Problems: PLAN: 1. Plan for addition of HCTZ 2. Supportive care. 3. f/u with PCP. ANTOINE MELO MD Nov 09, 2016 08:31
[2016-11-09] MEDS ORDERED: hydroCHLOROthiazide 25 MG TABLET PO SCH (09:00)
[2016-11-09 11:00] VITALS: BP 165/98
--- NOTE | 2016-11-09 11:11 | PDOC3 ---
Discharge Summary Visit Information Date of Admission: Nov 09, 2016 Date of Discharge: Nov 09, 2016 Admitting Diagnosis: HTN Final Diagnosis Problems Medical Problems: (1) Accelerated hypertension Status: Acute Middle aged male presented with HTN emergency. Gave BP meds. Consulted Cardiology. VORA is Negative. Pt seen and examined this am VSS Will dc Dictation is still down Total time 32 minutes Brief Hospital Course Allergies Allergies Coded Allergies Type Severity Reaction Last Updated Verified No Known Drug Allergies 05/01/13 No Vital Signs Vital Signs Date Time Temp Pulse Resp B/P (MAP) Pulse Ox O2 Delivery O2 Flow Rate FiO2 11/09/16 08:25 75 152/92 11/09/16 08:23 Room Air 11/09/16 07:00 97.5 22 94 97.5 Lab Results Laboratory Tests Test 11/08/16 04:45 11/08/16 11:30 11/08/16 17:35 11/09/16 03:11 White Blood Count 10.4 x10^3/uL (4.0-11.0) 9.9 x10^3/uL (4.0-11.0) Red Blood Count 4.87 x10^6/uL (4.30-5.70) 5.11 x10^6/uL (4.30-5.70) Hemoglobin 15.3 g/dL (13.0-17.5) 16.1 g/dL (13.0-17.5) Hematocrit 44.7 % (39.0-53.0) 47.1 % (39.0-53.0) Mean Corpuscular Volume 92 fL (79-100) 92 fL (79-100) Mean Corpuscular Hemoglobin 32 pg (25-35) 32 pg (25-35) Mean Corpuscular Hemoglobin Concent 34 g/dL (31-37) 34 g/dL (31-37) Red Cell Distribution Width 13.5 % (11.5-14.5) 13.8 % (11.5-14.5) Platelet Count 176 x10^3/uL (140-400) 187 x10^3/uL (140-400) Neutrophils (%) (Auto) 58 % (31-73) 59 % (31-73) Lymphocytes (%) (Auto) 29 % (24-48) 26 % (24-48) Monocytes (%) (Auto) 10 % (0-9) 9 % (0-9) Eosinophils (%) (Auto) 3 % (0-3) 4 % (0-3) Basophils (%) (Auto) 1 % (0-3) 1 % (0-3) Neutrophils # (Auto) 6.0 x10^3uL (1.8-7.7) 5.9 x10^3uL (1.8-7.7) Lymphocytes # (Auto) 3.0 x10^3/uL (1.0-4.8) 2.6 x10^3/uL (1.0-4.8) Monocytes # (Auto) 1.0 x10^3/uL (0.0-1.1) 0.9 x10^3/uL (0.0-1.1) Eosinophils # (Auto) 0.3 x10^3/uL (0.0-0.7) 0.4 x10^3/uL (0.0-0.7) Basophils # (Auto) 0.1 x10^3/uL (0.0-0.2) 0.1 x10^3/uL (0.0-0.2) Prothrombin Time 13.2 SEC (11.7-14.0) Prothromb Time International Ratio 1.1 (0.8-1.1) Sodium Level 142 mmol/L (136-145) 141 mmol/L (136-145) Potassium Level 3.3 mmol/L (3.5-5.1) 3.4 mmol/L (3.5-5.1) Chloride Level 106 mmol/L (98-107) 105 mmol/L (98-107) Carbon Dioxide Level 29 mmol/L (21-32) 27 mmol/L (21-32) Anion Gap 7 (6-14) 9 (6-14) Blood Urea Nitrogen 14 mg/dL (8-26) 11 mg/dL (8-26) Creatinine 1.4 mg/dL (0.7-1.3) 1.1 mg/dL (0.7-1.3) Estimated GFR (Cockcroft-Gault) 67.6 89.3 Glucose Level 138 mg/dL (70-99) 144 mg/dL (70-99) Hemoglobin A1c 5.1 % (4.8-5.6) Lactic Acid Level 1.9 mmol/L (0.4-2.0) Calcium Level 8.3 mg/dL (8.5-10.1) 8.9 mg/dL (8.5-10.1) Magnesium Level 1.9 mg/dL (1.8-2.4) Total Bilirubin 0.3 mg/dL (0.2-1.0) Direct Bilirubin 0.1 mg/dL (0.0-0.2) Aspartate Amino Transf (AST/SGOT) 23 U/L (15-37) Alanine Aminotransferase (ALT/SGPT) 37 U/L (16-63) Alkaline Phosphatase 92 U/L (46-116) Creatine Kinase 113 U/L (39-308) Creatine Kinase MB (Mass) 2.8 ng/mL (0.0-3.6) Creatine Kinase MB Relative Index 2.5 % (0-4) Troponin I Quantitative 0.245 ng/mL (0.000-0.055) 0.216 ng/mL (0.000-0.055) 0.192 ng/mL (0.000-0.055) WX-Sha-I-Type Natriuretic Peptide 399 pg/mL (0-124) Total Protein 6.8 g/dL (6.4-8.2) Albumin 3.6 g/dL (3.4-5.0) Lipase 86 U/L (73-393) Thyroid Stimulating Hormone (TSH) 1.543 uIU/mL (0.358-3.74) Free Thyroxine 0.98 ng/dL (0.76-1.46) Free Triiodothyronine (T3) pg/mL 3.08 pg/mL (2.18-3.98) Laboratory Tests Test 11/08/16 11:30 11/08/16 17:35 11/09/16 03:11 Troponin I Quantitative 0.216 ng/mL (0.000-0.055) 0.192 ng/mL (0.000-0.055) White Blood Count 9.9 x10^3/uL (4.0-11.0) Red Blood Count 5.11 x10^6/uL (4.30-5.70) Hemoglobin 16.1 g/dL (13.0-17.5) Hematocrit 47.1 % (39.0-53.0) Mean Corpuscular Volume 92 fL (79-100) Mean Corpuscular Hemoglobin 32 pg (25-35) Mean Corpuscular Hemoglobin Concent 34 g/dL (31-37) Red Cell Distribution Width 13.8 % (11.5-14.5) Platelet Count 187 x10^3/uL (140-400) Neutrophils (%) (Auto) 59 % (31-73) Lymphocytes (%) (Auto) 26 % (24-48) Monocytes (%) (Auto) 9 % (0-9) Eosinophils (%) (Auto) 4 % (0-3) Basophils (%) (Auto) 1 % (0-3) Neutrophils # (Auto) 5.9 x10^3uL (1.8-7.7) Lymphocytes # (Auto) 2.6 x10^3/uL (1.0-4.8) Monocytes # (Auto) 0.9 x10^3/uL (0.0-1.1) Eosinophils # (Auto) 0.4 x10^3/uL (0.0-0.7) Basophils # (Auto) 0.1 x10^3/uL (0.0-0.2) Sodium Level 141 mmol/L (136-145) Potassium Level 3.4 mmol/L (3.5-5.1) Chloride Level 105 mmol/L (98-107) Carbon Dioxide Level 27 mmol/L (21-32) Anion Gap 9 (6-14) Blood Urea Nitrogen 11 mg/dL (8-26) Creatinine 1.1 mg/dL (0.7-1.3) Estimated GFR (Cockcroft-Gault) 89.3 Glucose Level 144 mg/dL (70-99) Calcium Level 8.9 mg/dL (8.5-10.1) Brief Hospital Course Mr. Pagan is a 41 old [sex] who presented with [ ] Discharge Information Scheduled Benzonatate (Benzonatate), 1 CAP PO TID Lisinopril (Lisinopril), 1 TAB PO DAILY Methylprednisolone (Medrol), 1 PKG PO UD Naproxen (Naproxen), 1 TAB PO BID Naproxen Sodium (Anaprox Ds), 1 TAB PO PRN Q12HRS Nicotine (NICODERM CQ 21mg), 1 PATCH TP DAILY Scheduled PRN Hydrocodone/Apap 5-325 ([place] 5-325 Tablet), 1 TAB PO PRN Q6HRS PRN for PAIN Miscellaneous Medications Aspirin/Calcium Carbonate/Mag (Aspirin Buffered 325 Mg Tab), 325 MG PO, ( Reported) B12/Levomefolate Calcium/B-6 (Folbic Rf Tablet), 1 EACH PO, (Reported) Diltiazem Hcl (Diltiazem 24HR Er), 240 MG PO, (Reported) Exenatide (Byetta), 10 MCG SQ, (Reported) Glipizide (Glipizide), 10 MG PO, (Reported) Hydrocodone Bit/Acetaminophen (Hydrocodone-Apap 5-325 ), 1 EACH PO, (Reported ) Hydroxychloroquine Sulfate (Hydroxychloroquine Sulfate), 200 MG PO, (Reported) Lisinopril/Hydrochlorothiazide (Lisinopril-Hctz 20-12.5 Mg Tab), 1 EACH PO, ( Reported) Meloxicam (Meloxicam), 15 MG PO, (Reported) Metformin Hcl (Metformin Hcl), 1,000 MG PO, (Reported) Metoclopramide Hcl (Metoclopramide Hcl), 5 MG PO, (Reported) Rabeprazole Sodium (Aciphex), 20 MG PO, (Reported) Temazepam (Temazepam), 30 MG PO, (Reported) MARCI RASMUSSEN III DO Nov 09, 2016 11:11
--- NOTE | 2016-11-09 12:05 | PDOC ---
PROGRESS NOTES Chief Complaint Chief Complaint 1. Malignant HTN 2. Mildly elevated troponin: 0.245 on admission, likely demand ischemia 3. Hypokalemia: 3.3 on admission 4. Hx of bronchitis 5. Hx of guillain barre syndrome 6. Orthopedic surgical placement of yolanda in R leg for sx History of Present Illness History of Present Illness pt is resting in bed comfortably this morning, he has been noncompliant with his medications but his meds have all been changed to the $4 med list Vitals Vitals Vital Signs Date Time Temp Pulse Resp B/P (MAP) Pulse Ox O2 Delivery O2 Flow Rate FiO2 11/09/16 11:00 97.5 76 20 165/98 (120) 92 97.5 11/09/16 08:23 Room Air Physical Exam General: Alert, Oriented X3, Cooperative, No acute distress Heart: Regular rate, Normal S1, Normal S2, No murmurs Lungs: Clear, Other (no crackles or wheezes) Abdomen: Normal bowel sounds, Soft, No tenderness Extremities: No clubbing, No cyanosis, No edema Skin: No rashes, No breakdown Labs LABS Laboratory Tests Test 11/08/16 17:35 11/09/16 03:11 Troponin I Quantitative 0.192 ng/mL (0.000-0.055) White Blood Count 9.9 x10^3/uL (4.0-11.0) Red Blood Count 5.11 x10^6/uL (4.30-5.70) Hemoglobin 16.1 g/dL (13.0-17.5) Hematocrit 47.1 % (39.0-53.0) Mean Corpuscular Volume 92 fL (79-100) Mean Corpuscular Hemoglobin 32 pg (25-35) Mean Corpuscular Hemoglobin Concent 34 g/dL (31-37) Red Cell Distribution Width 13.8 % (11.5-14.5) Platelet Count 187 x10^3/uL (140-400) Neutrophils (%) (Auto) 59 % (31-73) Lymphocytes (%) (Auto) 26 % (24-48) Monocytes (%) (Auto) 9 % (0-9) Eosinophils (%) (Auto) 4 % (0-3) Basophils (%) (Auto) 1 % (0-3) Neutrophils # (Auto) 5.9 x10^3uL (1.8-7.7) Lymphocytes # (Auto) 2.6 x10^3/uL (1.0-4.8) Monocytes # (Auto) 0.9 x10^3/uL (0.0-1.1) Eosinophils # (Auto) 0.4 x10^3/uL (0.0-0.7) Basophils # (Auto) 0.1 x10^3/uL (0.0-0.2) Sodium Level 141 mmol/L (136-145) Potassium Level 3.4 mmol/L (3.5-5.1) Chloride Level 105 mmol/L (98-107) Carbon Dioxide Level 27 mmol/L (21-32) Anion Gap 9 (6-14) Blood Urea Nitrogen 11 mg/dL (8-26) Creatinine 1.1 mg/dL (0.7-1.3) Estimated GFR (Cockcroft-Gault) 89.3 Glucose Level 144 mg/dL (70-99) Calcium Level 8.9 mg/dL (8.5-10.1) Review of Systems Review of Systems denies nausea, vomiting, or diarrhea denies chest pain or SOB Assessment and Plan Assessmemt and Plan Assessment 1. Malignant HTN 2. Mildly elevated troponin: 0.245 on admission, likely demand ischemia 3. Hypokalemia: 3.3 on admission 4. Hx of bronchitis 5. Hx of guillain barre syndrome 6. Orthopedic surgical placement of yolanda in R leg for sx Plan 1. Follow troponins, downtrending from 0.245 to 0.216, 0.192, likely demand ischemia 2. Appreciate subspecialty input 3. Discussed plan of care with nursing 4. Consulted pt on importance of medication compliance, adverse effects and risks of skipping medications 5. Recheck BMP and CBC, K is 3.4 today 6. PT/OT 7. Probable discharge today pending cardiology approval Problems: Comment Review of Relevant I have reviewed the following items parisa (where applicable) has been applied. Labs Laboratory Tests Test 11/08/16 04:45 11/08/16 11:30 11/08/16 17:35 11/09/16 03:11 White Blood Count 10.4 x10^3/uL (4.0-11.0) 9.9 x10^3/uL (4.0-11.0) Red Blood Count 4.87 x10^6/uL (4.30-5.70) 5.11 x10^6/uL (4.30-5.70) Hemoglobin 15.3 g/dL (13.0-17.5) 16.1 g/dL (13.0-17.5) Hematocrit 44.7 % (39.0-53.0) 47.1 % (39.0-53.0) Mean Corpuscular Volume 92 fL (79-100) 92 fL (79-100) Mean Corpuscular Hemoglobin 32 pg (25-35) 32 pg (25-35) Mean Corpuscular Hemoglobin Concent 34 g/dL (31-37) 34 g/dL (31-37) Red Cell Distribution Width 13.5 % (11.5-14.5) 13.8 % (11.5-14.5) Platelet Count 176 x10^3/uL (140-400) 187 x10^3/uL (140-400) Neutrophils (%) (Auto) 58 % (31-73) 59 % (31-73) Lymphocytes (%) (Auto) 29 % (24-48) 26 % (24-48) Monocytes (%) (Auto) 10 % (0-9) 9 % (0-9) Eosinophils (%) (Auto) 3 % (0-3) 4 % (0-3) Basophils (%) (Auto) 1 % (0-3) 1 % (0-3) Neutrophils # (Auto) 6.0 x10^3uL (1.8-7.7) 5.9 x10^3uL (1.8-7.7) Lymphocytes # (Auto) 3.0 x10^3/uL (1.0-4.8) 2.6 x10^3/uL (1.0-4.8) Monocytes # (Auto) 1.0 x10^3/uL (0.0-1.1) 0.9 x10^3/uL (0.0-1.1) Eosinophils # (Auto) 0.3 x10^3/uL (0.0-0.7) 0.4 x10^3/uL (0.0-0.7) Basophils # (Auto) 0.1 x10^3/uL (0.0-0.2) 0.1 x10^3/uL (0.0-0.2) Prothrombin Time 13.2 SEC (11.7-14.0) Prothromb Time International Ratio 1.1 (0.8-1.1) Sodium Level 142 mmol/L (136-145) 141 mmol/L (136-145) Potassium Level 3.3 mmol/L (3.5-5.1) 3.4 mmol/L (3.5-5.1) Chloride Level 106 mmol/L (98-107) 105 mmol/L (98-107) Carbon Dioxide Level 29 mmol/L (21-32) 27 mmol/L (21-32) Anion Gap 7 (6-14) 9 (6-14) Blood Urea Nitrogen 14 mg/dL (8-26) 11 mg/dL (8-26) Creatinine 1.4 mg/dL (0.7-1.3) 1.1 mg/dL (0.7-1.3) Estimated GFR (Cockcroft-Gault) 67.6 89.3 Glucose Level 138 mg/dL (70-99) 144 mg/dL (70-99) Hemoglobin A1c 5.1 % (4.8-5.6) Lactic Acid Level 1.9 mmol/L (0.4-2.0) Calcium Level 8.3 mg/dL (8.5-10.1) 8.9 mg/dL (8.5-10.1) Magnesium Level 1.9 mg/dL (1.8-2.4) Total Bilirubin 0.3 mg/dL (0.2-1.0) Direct Bilirubin 0.1 mg/dL (0.0-0.2) Aspartate Amino Transf (AST/SGOT) 23 U/L (15-37) Alanine Aminotransferase (ALT/SGPT) 37 U/L (16-63) Alkaline Phosphatase 92 U/L (46-116) Creatine Kinase 113 U/L (39-308) Creatine Kinase MB (Mass) 2.8 ng/mL (0.0-3.6) Creatine Kinase MB Relative Index 2.5 % (0-4) Troponin I Quantitative 0.245 ng/mL (0.000-0.055) 0.216 ng/mL (0.000-0.055) 0.192 ng/mL (0.000-0.055) TG-Shq-Y-Type Natriuretic Peptide 399 pg/mL (0-124) Total Protein 6.8 g/dL (6.4-8.2) Albumin 3.6 g/dL (3.4-5.0) Lipase 86 U/L (73-393) Thyroid Stimulating Hormone (TSH) 1.543 uIU/mL (0.358-3.74) Free Thyroxine 0.98 ng/dL (0.76-1.46) Free Triiodothyronine (T3) pg/mL 3.08 pg/mL (2.18-3.98) Laboratory Tests Test 11/08/16 17:35 11/09/16 03:11 Troponin I Quantitative 0.192 ng/mL (0.000-0.055) White Blood Count 9.9 x10^3/uL (4.0-11.0) Red Blood Count 5.11 x10^6/uL (4.30-5.70) Hemoglobin 16.1 g/dL (13.0-17.5) Hematocrit 47.1 % (39.0-53.0) Mean Corpuscular Volume 92 fL (79-100) Mean Corpuscular Hemoglobin 32 pg (25-35) Mean Corpuscular Hemoglobin Concent 34 g/dL (31-37) Red Cell Distribution Width 13.8 % (11.5-14.5) Platelet Count 187 x10^3/uL (140-400) Neutrophils (%) (Auto) 59 % (31-73) Lymphocytes (%) (Auto) 26 % (24-48) Monocytes (%) (Auto) 9 % (0-9) Eosinophils (%) (Auto) 4 % (0-3) Basophils (%) (Auto) 1 % (0-3) Neutrophils # (Auto) 5.9 x10^3uL (1.8-7.7) Lymphocytes # (Auto) 2.6 x10^3/uL (1.0-4.8) Monocytes # (Auto) 0.9 x10^3/uL (0.0-1.1) Eosinophils # (Auto) 0.4 x10^3/uL (0.0-0.7) Basophils # (Auto) 0.1 x10^3/uL (0.0-0.2) Sodium Level 141 mmol/L (136-145) Potassium Level 3.4 mmol/L (3.5-5.1) Chloride Level 105 mmol/L (98-107) Carbon Dioxide Level 27 mmol/L (21-32) Anion Gap 9 (6-14) Blood Urea Nitrogen 11 mg/dL (8-26) Creatinine 1.1 mg/dL (0.7-1.3) Estimated GFR (Cockcroft-Gault) 89.3 Glucose Level 144 mg/dL (70-99) Calcium Level 8.9 mg/dL (8.5-10.1) Medications Current Medications Fentanyl Citrate (Fentanyl 2ml Vial) 50 mcg PRN Q15MIN PRN IV PAIN GREATER THAN 3/10 Last administered on 11/08/16 05:14; Start 11/08/16 at 04:45; Stop 11/08 at 08:17; Status DC Diazepam (Valium) 5 mg 1X ONCE IV Last administered on 11/08/16 05:14; Start 11/08/16 at 04:45; Stop 11/08/16 at 04:46; Status DC Labetalol HCl (Normodyne) 20 mg 1X ONCE IVP Last administered on 11/08/16 05: 40; Start 11/08/16 at 05:45; Stop 11/08/16 at 05:46; Status DC Aspirin ([place] Aspirin) 325 mg 1X ONCE PO Last administered on 11/08/16 05:39 ; Start 11/08/16 at 05:45; Stop 11/08/16 at 05:46; Status DC Ondansetron HCl (Zofran) 4 mg PRN Q8HRS PRN IV NAUSEA/VOMITING; Start 11/08/16 at 05:45; Stop 11/08/16 at 08:17; Status DC Morphine Sulfate 2 mg PRN Q2HR PRN IV PAIN Last administered on 11/08/16 08:14 ; Start 11/08/16 at 05:45; Stop 11/09/16 at 05:44; Status DC Labetalol HCl (Normodyne) 20 mg PRN 1X PRN IVP systolic greater than 180 Last administered on 11/08/16 07:16; Start 11/08/16 at 05:45; Stop 11/09/16 at 11:47; Status DC Fentanyl Citrate (Fentanyl 2ml Vial) 50 mcg PRN Q2HR PRN IV PAIN GREATER THAN 3 /10; Start 11/08/16 at 08:12; Stop 11/09/16 at 08:11; Status DC Ondansetron HCl (Zofran) 4 mg PRN Q6HRS PRN IV NAUSEA/VOMITING; Start 11/08/16 at 08:12; Stop 11/09/16 at 08:11; Status DC Labetalol HCl (Normodyne) 10 mg PRN Q2HR PRN IVP HYPERTENSION, SEE COMMENTS; Start 11/08/16 at 08:15; Stop 11/09/16 at 11:47; Status DC Acetaminophen/ Hydrocodone Bitart ([place] 5/325) 1 tab PRN Q4HRS PRN PO PAIN Last administered on 11/09/16 06:14; Start 11/08/16 at 08:15; Stop 11/09/16 at 11: 47; Status DC Diltiazem HCl (Cardizem 24hr Cd) 240 mg DAILY PO Last administered on 11/08/16 11:19; Start 11/08/16 at 09:00; Stop 11/08/16 at 13:11; Status DC Exenatide (Byetta) 10 mcg DAILY SQ ; Start 11/08/16 at 09:00; Stop 11/08/16 at 11: 36; Status DC Acetaminophen/ Hydrocodone Bitart (Lortab 5/325) 1 tab QID PRN PO pain; Start 11/08/16 at 08:15; Status UNV Acetaminophen/ Hydrocodone Bitart (Lortab 5/325) 1 tab PRN Q6HRS PRN PO PAIN; Start 11/08/16 at 08:15; Status UNV Lisinopril (Prinivil) 40 mg DAILY PO Last administered on 11/09/16 08:25; Start 11/08/16 at 09:00; Stop 11/09/16 at 11:47; Status DC Metoclopramide HCl (Reglan) 5 mg TIDAC PO Last administered on 11/09/16 08:25; Start 11/08/16 at 11:30; Stop 11/09/16 at 11:47; Status DC Nicotine (Nicoderm Cq 21mg) 1 patch DAILY TD Last administered on 11/09/16 08: 25; Start 11/08/16 at 09:00; Stop 11/09/16 at 11:47; Status DC Temazepam (Restoril) 15 mg QHS PO Last administered on 11/08/16 20:45; Start at 21:00; Stop 11/09/16 at 11:47; Status DC Benzonatate (Tessalon Perle) 100 mg [id number] PO Last administered on 11/08/16 11: 18; Start 11/08/16 at 09:00; Stop 11/08/16 at 11:36; Status DC Glipizide (Glucotrol Er) 10 mg DAILY08 PO ; Start 11/09/16 at 08:00; Stop at 08:00; Status DC Glipizide (Glucotrol Er) 10 mg DAILY08 PO ; Start 11/08/16 at 09:00; Stop at 11:36; Status DC Potassium Chloride (Klor-Con) 40 meq 1X ONCE PO Last administered on 11/08/16 14:08; Start 11/08/16 at 13:15; Stop 11/08/16 at 13:16; Status DC Carvedilol (Coreg) 12.5 mg BIDWMEALS PO Last administered on 11/09/16 08:24; Start 11/08/16 at 13:30; Stop 11/09/16 at 11:47; Status DC Hydralazine HCl (Apresoline) 10 mg PRN Q4HRS PRN IVP ELEVATED BP, SEE COMMENTS ; Start 11/08/16 at 13:15; Stop 11/09/16 at 11:47; Status DC Hydrochlorothiazide (Hydrodiuril) 25 mg DAILY PO Last administered on 11/09/16 10:40; Start 11/09/16 at 09:00; Stop 11/09/16 at 11:47; Status DC Active Scripts Active [place] 5-325 Tablet (Acetaminophen/Hydrocodone Bitart) 1 Each Tablet 1 Tab PO PRN Q6HRS PRN Anaprox Ds (Naproxen Sodium) 550 Mg Tablet 1 Tab PO PRN Q12HRS Benzonatate 200 Mg Capsule 1 Cap PO TID Lisinopril 40 Mg Tablet 1 Tab PO DAILY Naproxen 500 Mg Tablet. 1 Tab PO BID Medrol (Methylprednisolone) 4 Mg Tab.ds.pk 1 Pkg PO UD NICODERM CQ 21mg (Nicotine) 1 Each Patch.td24 1 Patch TP DAILY Reported [place] (Exenatide) 10 Mcg/0.04 Ml Pen.injctr 10 Mcg SQ Metformin Hcl 1,000 Mg Tablet 1,000 Mg PO Glipizide 10 Mg Tablet 10 Mg PO Hydroxychloroquine Sulfate 200 Mg Tablet 200 Mg PO Lisinopril-Hctz 20-12.5 Mg Tab (Lisinopril/Hydrochlorothiazide) 1 Each Tablet 1 Each PO Metoclopramide Hcl 5 Mg Tablet 5 Mg PO Diltiazem 24HR Er (Diltiazem Hcl) 240 Mg Cap.er.24h 240 Mg PO Aciphex (Rabeprazole Sodium) 20 Mg Tablet.dr 20 Mg PO Hydrocodone-Apap 5-325 (Hydrocodone Bit/Acetaminophen) 1 Each Tablet 1 Each PO Meloxicam 15 Mg Tablet 15 Mg PO Temazepam 30 Mg Capsule 30 Mg PO Folbic Rf Tablet (B12/Levomefolate Calcium/B-6) 1 Each Tablet 1 Each PO Aspirin Buffered 325 Mg Tab (Aspirin/Calcium Carbonate/Mag) 325 Mg Tablet 325 Mg PO Vitals/I & O Vital Sign - Last 24 Hours 11/08/16 11/08/16 11/08/16 11/08/16 13:25 14:09 15:00 15:25 Temp 98.9 98.9 Pulse 84 84 82 Resp 16 16 20 B/P (MAP) 160/119 (133) 160/119 218/108 (144) Pulse Ox 96 O2 Delivery Room Air Room Air 11/08/16 11/08/16 11/08/16 11/08/16 16:25 16:30 17:27 19:00 Temp 98.0 98.0 Pulse 82 87 Resp 20 14 B/P (MAP) 161/88 (112) 161/88 156/80 (105) Pulse Ox 96 96 O2 Delivery Room Air 11/08/16 11/08/16 11/08/16 11/09/16 20:00 20:45 23:30 02:13 Temp 98.5 98.5 Pulse 75 Resp 18 13 18 B/P (MAP) 142/72 (95) Pulse Ox 96 O2 Delivery Room Air Room Air Room Air Room Air 11/09/16 11/09/16 11/09/16 11/09/16 03:00 06:14 07:00 07:55 Temp 98.0 97.5 98.0 97.5 Pulse 71 70 Resp 16 18 22 B/P (MAP) 150/90 (110) 152/92 (112) Pulse Ox 97 94 O2 Delivery Room Air Room Air Room Air Room Air 11/09/16 11/09/16 11/09/16 11/09/16 08:23 08:24 08:25 11:00 Temp 97.5 97.5 Pulse 78 75 76 Resp 20 B/P (MAP) 152/92 152/92 165/98 (120) Pulse Ox 92 O2 Delivery Room Air Intake and Output 11/08/16 11/08/16 11/09/16 15:00 23:00 07:00 Intake Total 480 ml 500 ml 300 ml Output Total 400 ml 1300 ml Balance 480 ml 100 ml -1000 ml MARCI RASMUSSEN III DO Nov 09, 2016 12:05
[2016-11-10] MEDS ORDERED: CYCL10TA2 PO (13:47)
== END 2016-11-09 11:40 | disposition home or self-care (01) | DRG 683 ==
LOC: ER 04:11 → 2 SOUTH 05:00
PROVIDERS: ADMIT Internal Medicine; ATTEND Internal Medicine
DX: N17.9 Acute kidney failure, unspecified (principal); I16.1 Hypertensive emergency; G61.0 Guillain-Barre syndrome; Z68.41 Body mass index [BMI] 40.0-44.9, adult; E66.9 Obesity, unspecified; E87.6 Hypokalemia; M54.2 Cervicalgia; M19.90 Unspecified osteoarthritis, unspecified site; F17.210 Nicotine dependence, cigarettes, uncomplicated; F32.9 Major depressive disorder, single episode, unspecified; Z82.49 Family history of ischemic heart disease and other diseases of the circulatory system; Z91.14 Patient's other noncompliance with medication regimen; I12.9 Hypertensive chronic kidney disease with stage 1 through stage 4 chronic kidney disease, or unspecified chronic kidney disease; N18.2 Chronic kidney disease, stage 2 (mild)
CPT/HCPCS: 36415; 71010; 80048; 80076; 82553; 83036; 83605; 83690; 83735; 83880; 84439; 84443; 84481; 84484; 85027; 85610; 93005; 96374; 96375; J2270; J3010; J3360; J3490; J8597; 99285-25

== ENCOUNTER 2016-11-10 12:00 | Emergency (ER) | payer SELFPAY ==
[~2016-11-10] VITALS: Ht 170.2 cm; Wt 97.5 kg
[2016-11-10 12:42] VITALS: BP 181/111
--- NOTE | 2016-11-10 13:39 | RAD ---
Indication neck pain. No history of injury. Axial images through the cervical spine were obtained. Images were reformatted in the coronal and sagittal planes. It should be noted that CT is relatively insensitive evaluating for disc disease in the cervical spine. MRI is much more sensitive in this regard. The lung apices are clear. A significant soft tissue finding in the neck is seen. Review of axial images shows no acute finding. There is some mild right neural foraminal encroachment at the C4-5. Significant bony canal narrowing is not seen at any level. IMPRESSION: No acute finding. Slight right neural foraminal bony encroachment at C4-5. If clinically warranted consider MRI for additional evaluation PQRS Compliance Statement: One or more of the following individualized dose reduction techniques were utilized for this examination: 1. Automated exposure control 2. Adjustment of the mA and/or kV according to patient size 3. Use of iterative reconstruction technique
[2016-11-10] MEDS ORDERED: CYCL10TA2 PO (13:47)
--- NOTE | 2016-11-10 13:47 | PHYS DOC ---
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 He states that he was seen here on November 08 for the same pain and discomfort was noted to have a elevated blood pressure which she was hospitalized for the pain. Patient states he has a prescription for blood pressure medicine however he has not filled it yet. Patient's blood pressure is elevated at this time. Patient denies any trauma or injury to his neck area. He does state that he has tenderness along the spinal area as well as to the right side of the spine. He has decreased range of motion of the neck. He states he has not taken any pain medication. Patient denies numbness or tingling to the lower extremities.[] Review of Systems Review of Systems Constitutional: Denies fever or chills [] Eyes: Denies change in visual acuity, redness, or eye pain [] HENT: Denies nasal congestion or sore throat [] Respiratory: Denies cough or shortness of breath [] Cardiovascular: No additional information not addressed in HPI [] GI: Denies abdominal pain, nausea, vomiting, bloody stools or diarrhea [] : Denies dysuria or hematuria [] Musculoskeletal: Neck pain denies joint pain [] Integument: Denies rash or skin lesions [] Neurologic: Denies headache, focal weakness or sensory changes [] Endocrine: Denies polyuria or polydipsia [] Allergies Allergies Allergies Coded Allergies Type Severity Reaction Last Updated Verified No Known Drug Allergies 05/01/13 No Physical Exam Physical Exam Constitutional: Well developed, well nourished, no acute distress, non-toxic appearance. [] HENT: Normocephalic, atraumatic, bilateral external ears normal, oropharynx moist, no oral exudates, nose normal. [] Eyes: PERRLA, EOMI, conjunctiva normal, no discharge. [] Neck: Normal range of motion, no tenderness, supple, no stridor. [] Cardiovascular:Heart rate regular rhythm, no murmur [] Lungs & Thorax: Bilateral breath sounds clear to auscultation [][] Skin: Warm, dry, no erythema, no rash. [] Back: Cervical spine tenderness, no crepitus no deformities no step-offs noted. Patient did have tenderness noted on the right paraspinal area of the cervical area. No thoracic or lumbar spine tenderness noted no crepitus no deformities no step-offs noted. No CVA tenderness. [] Extremities: No tenderness, no cyanosis, no clubbing, ROM intact, no edema. [] Neurologic: Alert and oriented X 3, normal motor function, normal sensory function, no focal deficits noted. Patient was noted to ambulate with a good steady gait. Psychologic: Affect normal, judgement normal, mood normal. [] Current Patient Data Vital Signs Vital Signs Date Time Temp Pulse Resp B/P (MAP) Pulse Ox O2 Delivery O2 Flow Rate FiO2 11/10/16 12:42 99.1 93 22 181/111 (134) 97 Room Air 99.1 EKG EKG [] Radiology/Procedures Radiology/Procedures [facility] [address] [place] [address] IMAGING REPORT Signed PATIENT: REDDY RAYMUNDO ACCOUNT: [id number] : 1975 LOCATION: ER AGE: 41 SEX: M EXAM STATUS: REG ER ORD. PHYSICIAN: OH TOURE APRN REASON: neck pain since 11/08 denies injury increase pain PROCEDURE: CT CERVICAL SPINE WO CONTRAST Indication neck pain. No history of injury. Axial images through the cervical spine were obtained. Images were reformatted in the coronal and sagittal planes. It should be noted that CT is relatively insensitive evaluating for disc disease in the cervical spine. MRI is much more sensitive in this regard. The lung apices are clear. A significant soft tissue finding in the neck is seen. Review of axial images shows no acute finding. There is some mild right neural foraminal encroachment at the C4-5. Significant bony canal narrowing is not seen at any level. IMPRESSION: No acute finding. Slight right neural foraminal bony encroachment at C4-5. If clinically warranted consider MRI for additional evaluation PQRS Compliance Statement: One or more of the following individualized dose reduction techniques were utilized for this examination: 1. Automated exposure control 2. Adjustment of the mA and/or kV according to patient size 3. Use of iterative reconstruction technique DICTATED and SIGNED BY: ISMAEL LOTT MD DATE: 11/10/16 1328 CC: OH TOURE APRN; NO PCP; NON,STAFF ~ [] Course & Med Decision Making Course & Med Decision Making Pertinent Labs and Imaging studies reviewed. (See chart for details) CT scan shows slight right neural foraminal bony encroachment at C4-5. Patient was provided with CT results. He'll be provided with Flexeril to help with muscle spasms and pain. This medication will cause drowsiness do not take if you need to be alert and oriented His also recommended to use ibuprofen 800 mg every 8 hours with food stop taking few develop an upset stomach.Patient was recommended to get his blood pressure medication filled as his blood pressure was high here in the emergency department today. Also recommended that he follow up with his primary care physician for further MRIs if he continues to have neck pain and discomfort. Signs and symptoms to return back to emergency department as been patient will be discharged home in stable condition. [] Dragon Disclaimer Dragon Disclaimer This electronic medical record was generated, in whole or in part, using a voice recognition dictation system. Departure Departure Impression: Primary Impression: Cervical spine pain Disposition: 01 HOME, SELF-CARE Condition: STABLE Referrals: NO PCP (PCP) Patient Instructions: Soft Tissue Injury of the Neck, [id number] Additional Instructions: Activity as tolerated Medication as prescribed Please fill your prescription for your blood pressure as it was high in the emergency department flexeril will cause drowsiness do not take if you need to be alert and oriented Ice packs on 20 minutes and off 20 minutes several times a day Followup with your primary care provider for further evaluation of neck pain Return to emergency department as needed for signs and symptoms that become worse. Scripts Cyclobenzaprine Hcl (CYCLOBENZAPRINE HCL) 10 Mg Tablet 10 MG PO TID Y for MUSCLE SPASMS, #30 TAB Prov: OH TOURE APRN 11/10/16 OH TOURE APRN Nov 10, 2016 13:47
[2016-11-10] MEDS ORDERED: CYCLOBENZAPRINE 10 MG TABLET. PO ONE (14:00)
== END 2016-11-10 14:51 | disposition home or self-care (01) ==
LOC: ER 12:00
DX: M54.2 Cervicalgia (principal); I10 Essential (primary) hypertension; G61.0 Guillain-Barre syndrome
CPT/HCPCS: 72125; 99284-25

== ENCOUNTER → 2021-09-27 | Emergency (ER) | payer SELFPAY ==
[~2021-09-27] VITALS: Ht 175.3 cm; Wt 104.5 kg
[~2021-09-27] MED LIST changes: +CYCL10TA19 PO; -HYDR-2758 PO; +HYDR-2761 PO; +HYDR-3164 PO; -HYDR-971 PO; +LISI-130 PO; +LISI1TAB37 PO; -LISI1TAB5 PO; -LISI40TA PO; -METF-620 PO; +METF10007 PO; +NAPR-682 PO; -NAPR550T PO
[2021-09-27 15:51] LABS: BASO # 0.1 x10^3/uL (0.0-0.2); BASO % 1 % (0-3); EOS # 0.3 x10^3/uL (0.0-0.7); EOS % 3 % (0-3); HEMATOCRIT 46.2 % (39.0-53.0); HEMOGLOBIN 16.1 g/dL (13.0-17.5); LYMPH % 20 % (24-48); MEAN CORPUSCULAR HEMOGLOBIN 32 pg (25-35); MEAN CORPUSCULAR HGB CONC 35 g/dL (31-37); MEAN CORPUSCULAR VOLUME 91 fL (79-100); MONO # 0.8 x10^3/uL (0.0-1.1); MONO % 8 % (0-9); NEUT % 68 % (31-73); PLATELET COUNT 194 x10^3/uL (140-400); RED BLOOD COUNT 5.08 x10^6/uL (4.30-5.70); RED CELL DISTRIBUTION WIDTH 13.5 % (11.5-14.5); WHITE BLOOD COUNT 10.3 x10^3/uL (4.0-11.0)
[2021-09-27 16:00] LABS: BARBITURATES NEG (NEG); BENZODIAZEPINES NEG (NEG); CANNABINOIDS POS (NEG); COCAINE NEG (NEG); METHADONE NEG (NEG); OPIATES NEG (NEG); PHENCYCLIDINE NEG (NEG)
[2021-09-27 16:02] LABS: AMPHETAMINE/METHAMPHETAMINE NEG (NEG)
[2021-09-27 16:03] LABS: CREATININE 1.4 mg/dL (0.7-1.3); GFR 66.3; POTASSIUM 3.7 mmol/L (3.5-5.1)
[2021-09-27 16:08] LABS: ACETAMIN < 2 mcg/ml (10-30); ETHANOL < 10 mg/dL (0-10)
--- NOTE | 2021-09-27 16:08 | PHYS DOC ---
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 He states that he had thoughts of wanting to walk out in front of a vehicle today. Denies HI, hallucinations, drug use, chest pain, shortness of air, abdominal pain, fever, nausea, vomiting, diarrhea, headache, dizziness, overdosing, numbness or tingling. History of Monica Nicole, hypertension, right thigh henri and smoking. Review of Systems: Review of Systems: Constitutional: Denies fever or chills. [] Eyes: Denies change in visual acuity. [] HENT: Denies nasal congestion or sore throat. [] Respiratory: Denies cough or shortness of breath. [] Cardiovascular: Denies chest pain or edema. [] GI: Denies abdominal pain, nausea, vomiting, bloody stools or diarrhea. [] : Denies dysuria. [] Musculoskeletal: Denies back pain or joint pain. [] Integument: Denies rash. [] Neurologic: Denies headache, focal weakness or sensory changes. [] Endocrine: Denies polyuria or polydipsia. [] Lymphatic: Denies swollen glands. [] Psychiatric: + depression or denies anxiety. + Suicidal ideation [] Heart Score: C/O Chest Pain: No Allergies: Allergies: Allergies Coded Allergies Type Severity Reaction Last Updated Verified No Known Drug Allergies 05/01/13 No Physical Exam: PE: Constitutional: Well developed, well nourished, no acute distress, non-toxic appearance. [] HENT: Normocephalic, atraumatic, bilateral external ears normal, oropharynx moist, no oral exudates, nose normal. [] Eyes: PERRLA, EOMI, conjunctiva normal, no discharge. [] Neck: Normal range of motion, no tenderness, supple, no stridor. [] Cardiovascular:Heart rate regular rhythm, no murmur [] Lungs & Thorax: Bilateral breath sounds clear to auscultation [] Abdomen: Bowel sounds normal, soft, no tenderness, no masses, no pulsatile masses. [] Skin: Warm, dry, no erythema, no rash. [] Back: No tenderness, no CVA tenderness. [] Extremities: No tenderness, no cyanosis, no clubbing, ROM intact, no edema. [] Neurologic: Alert and oriented X 3, normal motor function, normal sensory function, no focal deficits noted. [] Psychologic: Affect normal, judgement normal, mood normal. suicidal ideation [] Current Patient Data: Labs: Laboratory Tests Test 09/27/21 15:43 White Blood Count 10.3 x10^3/uL (4.0-11.0) Red Blood Count 5.08 x10^6/uL (4.30-5.70) Hemoglobin 16.1 g/dL (13.0-17.5) Hematocrit 46.2 % (39.0-53.0) Mean Corpuscular Volume 91 fL (79-100) Mean Corpuscular Hemoglobin 32 pg (25-35) Mean Corpuscular Hemoglobin Concent 35 g/dL (31-37) Red Cell Distribution Width 13.5 % (11.5-14.5) Platelet Count 194 x10^3/uL (140-400) Neutrophils (%) (Auto) 68 % (31-73) Lymphocytes (%) (Auto) 20 % (24-48) L Monocytes (%) (Auto) 8 % (0-9) Eosinophils (%) (Auto) 3 % (0-3) Basophils (%) (Auto) 1 % (0-3) Neutrophils # (Auto) 7.0 x10^3/uL (1.8-7.7) Lymphocytes # (Auto) 2.0 x10^3/uL (1.0-4.8) Monocytes # (Auto) 0.8 x10^3/uL (0.0-1.1) Eosinophils # (Auto) 0.3 x10^3/uL (0.0-0.7) Basophils # (Auto) 0.1 x10^3/uL (0.0-0.2) Urine Opiates Screen Neg (NEG) Urine Methadone Screen Neg (NEG) Urine Barbiturates Neg (NEG) Urine Phencyclidine Screen Neg (NEG) Urine Amphetamine/Methamphetamine Neg (NEG) Urine Benzodiazepines Screen Neg (NEG) Urine Cocaine Screen Neg (NEG) Urine Cannabinoids Screen Pos (NEG) Urine Ethyl Alcohol Neg (NEG) Laboratory Tests 09/27/21 15:43 Vital Signs: Vital Signs Date Time Temp Pulse Resp B/P (MAP) Pulse Ox O2 Delivery O2 Flow Rate FiO2 09/27/21 15:10 98.2 80 16 161/78 (105) 97 Room Air 98.2 EKG: EKG: [] Radiology/Procedures: Radiology/Procedures: [] Course & Med Decision Making: Course & Med Decision Making Pertinent Labs and Imaging studies reviewed. (See chart for details) Alert and oriented x4. Ambulatory steady gait. Skin pink warm and dry. Poor hygiene. Skin pink warm and dry. Calm and cooperative. Positive for marijuana. Vital signs are within normal limits. Blood work unremarkable. Patient is medically cleared. PAT team has been called and is going to come in and see the patient. Patient is a one-on-one suicidal precautions observation. ZULEMA Mendoza has been here to speak with the patient. Patient states that he does not feel safe going home, he is homeless. He states that he would feel safe being around his sisters. Both phone numbers for his sisters are shut off. At this time there are no psych beds open. Patient will likely be with us through the night. 0050: Patient signed over to Dr Pepper [] Alisha Disclaimer: Alisha Disclaimer: This electronic medical record was generated, in whole or in part, using a voice recognition dictation system. Departure Departure Impression: Primary Impression: Suicidal ideation Referrals: NO PCP (PCP) OH RUELAS APRN September 27, 2021 16:08
--- NOTE | 2021-09-28 04:19 | ED.ADGEN ---
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 During their time in observation they received the following/interventions: cardiopulmonary/pulse oximetry monitoring, aspiration precautions, one-to-one monitoring, neuro checks, serial exams and treatments. Family hx: Positive for marijuana Repeat vitals reviewed and stabilized. On re-evaluation at 04:21, patient is resting, calm and comfortable, no acute complaints. DISPOSITION: Medically cleared. Psychiatric Assessment Team was notified and consulted. Anticipate voluntary psych placement for suicidal ideation. Upon re-evaluation, it is determined that the patient requires ongoing observation and treatment, and care is signed out to the oncoming provider Dr. Jones at 06:00. Observation to continue under their supervision. DONTAE YUSUF MD September 28, 2021 04:19
--- NOTE | 2021-09-28 14:18 | EKG ---
[facility] [address] [place] [address] Test Date: 2021-09-28 Test Time: 13:49:44 Pat Name: REDDY RAYMUNDO Department: Room: Gender: M Ab Initio Etl Developer: : 1975 Requested By: JOSEMANUEL LEIGH Order Number: [id number] Reading MD: Obinna Suresh MD Measurements Intervals Danielson Rate: 73 P: 36 NM: 154 QRS: 61 QRSD: 88 T: -36 QT: 388 QTc: 431 Interpretive Statements SINUS RHYTHM INFEROLATERAL ISCHEMIA POSSIBLE Electronically Signed On 09-29-2021 11:06:35 CDT by Obinna Suresh MD
[2021-09-28 18:30] VITALS: BP 184/113
== END ==
LOC: ER 15:10
DX: R45.851 Suicidal ideations (principal); Z20.822 Contact with and (suspected) exposure to COVID-19; I10 Essential (primary) hypertension; F17.200 Nicotine dependence, unspecified, uncomplicated
CPT/HCPCS: 80048; 80307; 80329; 85025; 87426; 99285; G0480; U0003; 93005